=== PATIENT | female | born 1970 | race Caucasian/White ===

== ENCOUNTER 2017-12-01 12:15 | Emergency (ER) | payer OTHER, SELFPAY ==
[2017-12-01 13:07] LABS: #Basophils 0.1 thou/uL (0.0-0.2); #Eosinphils 0.2 thou/uL (0.0-0.7); #Monocytes 0.6 thou/uL (0.11-0.59); #Neutrophils 7.6 thou/uL (1.40-6.50); %Basophils 0.6 % (0.0-1.0); %Eosinophils 1.3 % (0.0-10.0); %Lymphocytes 26.2 % (21.0-51.0); %Monocytes 4.9 % (0.0-10.0); Hemoglobin 13.5 g/dL (12.0-16.0); Mean Corpuscular HGB CONC 35.5 g/dL (32.0-36.0); Mean Corpuscular Hemoglobin 33.9 pg (27.0-31.0); Mean Corpuscular Volume 95.5 fL (78.0-98.0); Mean Platelet Volume 7.5 fL (7.4-10.4); Platelet Count 310 thou/uL (130-400); RBC Distribution Width 12.2 % (11.5-14.5); Red Blood Cell (RBC) Count 3.99 mill/uL (4.20-5.40); White Blood Cell (WBC) Count 11.3 thou/uL (4.8-10.8)
[2017-12-01 13:27] LABS: ALT (SGPT) 38 U/L (8-55); AST (SGOT) 20 U/L (5-34); Alkaline Phosphatase 104 U/L (40-150); Anion Gap 11 mmol/L (10-20); BUN (Urea Nitrogen) 15 mg/dL (7.0-18.7); Bilirubin, Total 0.7 mg/dL (0.2-1.2); CK (CPK) 36 U/L (29-168); Calc. Creatinine Clearance 0 mL/min (70-130); Calcium 9.8 mg/dL (7.8-10.44); Carbon Dioxide 25 mmol/L (22-29); Chloride 106 mmol/L (98-107); Estimated GFR-MDRD 81; Globulin 3.3 g/dL (2.4-3.5); Glucose 103 mg/dL (70-105); Potassium 4.1 mmol/L (3.5-5.1); Protein, Total 7.3 g/dL (6.0-8.3); Sodium 138 mmol/L (136-145)
[2017-12-01 13:29] LABS: CKMB 0.4 ng/mL (0-6.6); Troponin I Less than 0.010 ng/mL (< 0.028)
--- NOTE | 2017-12-01 13:42 | RAD ---
CHEST 1 VIEW: HISTORY: Chest pain. COMPARISON: Chest radiograph 07/15/14. FINDINGS: Heart size is mildly enlarged. No pneumothorax. No effusion. No acute focal osseous abnormality. IMPRESSION: No acute intrathoracic abnormality. POS: [facility]
[2017-12-01] MEDS ORDERED: Cyclobenzaprine 10 MG TAB ONE (14:13)
[2017-12-01] MEDS ORDERED: Ketorolac Tromethamine 60 MG/2 ML VIAL ONE (14:13)
[2017-12-01] MEDS ORDERED: Cyclobenzaprine 10 MG TAB PO SCH (14:30)
[2017-12-01] MEDS ORDERED: Ketorolac Tromethamine 30 MG/ML VIAL IM SCH (14:30)
== END 2017-12-01 14:36 | disposition home or self-care (01) ==
LOC: ERS 12:15
DX: R07.89 Other chest pain (principal); I10 Essential (primary) hypertension; G43.909 Migraine, unspecified, not intractable, without status migrainosus; E78.5 Hyperlipidemia, unspecified; Z79.899 Other long term (current) drug therapy
CPT/HCPCS: 36416; 71045; 80053; 82550; 82553; 84484; 85025; 93005; 96372; J1885

== ENCOUNTER 2018-02-10 23:12 | Emergency (ER) | payer BC, SELFPAY ==
[2018-02-11] MEDS ORDERED: HYDROcodone/Acetaminophen 10/325 mg Tablet ONE (00:12)
--- NOTE | 2018-02-11 07:21 | RAD ---
2 VIEW RIGHT FOREARM: Date: 02/10/18 INDICATION: Injury with pain. FINDINGS: There is no fracture or dislocation. No radiopaque foreign body. IMPRESSION: No acute osseous abnormality of the right forearm. POS: [facility]
--- NOTE | 2018-02-11 08:09 | RAD ---
THREE VIEWS RIGHT WRIST: History: Tripped and fell. Right wrist pain. FINDINGS: AP, lateral, and oblique views of the right wrist obtained and demonstrate no evidence of right wrist fractures, subluxations, or bony lesions. If there is concern for an occult scaphoid fracture, repeat radiograph in 7-10 days may be of use. IMPRESSION: Normal three views right wrist. POS: [facility]
== END 2018-02-11 00:50 | disposition home or self-care (01) ==
LOC: ERS 23:12
DX: M25.531 Pain in right wrist (principal); I10 Essential (primary) hypertension; G43.909 Migraine, unspecified, not intractable, without status migrainosus; E78.5 Hyperlipidemia, unspecified; W19.XXXA Unspecified fall, initial encounter
CPT/HCPCS: 29125

== ENCOUNTER 2019-04-30 12:13 | Outpatient (CLI) | payer BC ==
--- NOTE | 2019-04-30 12:46 | RAD ---
LEFT ANKLE THREE VIEWS: HISTORY: Pain. FINDINGS: Mild soft tissue swelling. No evidence of fracture. Spurring from the plantar and posterior calcaneus noted. IMPRESSION: No acute fracture. POS: [facility]
--- NOTE | 2019-04-30 12:48 | RAD ---
LEFT FOOT THREE VIEWS: HISTORY: Foot pain. History of stress fracture. FINDINGS: Tarsals appear intact. Mild spurring from the posterior and plantar calcaneus. Metatarsals appear intact. No abnormal periosteal reaction identified. Phalanges and MTP joints unremarkable. IMPRESSION: No acute abnormality identified. POS: [facility]
== END 2019-04-30 12:14 | disposition home or self-care (01) ==
LOC: BICRAD 12:13
PROVIDERS: ATTEND Nurse Practitioner Family
DX: M79.672 Pain in left foot (principal); M25.572 Pain in left ankle and joints of left foot

== ENCOUNTER 2020-03-16 01:05 | Emergency (ER) | payer BC ==
[2020-03-16] MEDS ORDERED: Ketorolac Tromethamine 30 MG/ML VIAL ONE (02:20)
--- NOTE | 2020-03-16 07:16 | RAD ---
RADIOGRAPH LEFT FOOT 3VIEWS: DATE: 03/16/2020 2:20 AM HISTORY: 49-year-old female with foot pain diagnosed with stress fracture. FINDINGS: There is no evidence of fracture or dislocation. There is no evidence of periostitis, permeative lesi on, osteolytic lesion, or osteoblastic lesion. The joint spaces are maintained without erosions or significant osteophytes. Moderate size enthesophyte at Achilles tendon insertion site at posterior ca lcaneus. No stress fracture identified. IMPRESSION: Negative
== END 2020-03-16 03:14 | disposition home or self-care (01) ==
LOC: ERS 01:05
DX: M84.375A Stress fracture, left foot, initial encounter for fracture (principal); I10 Essential (primary) hypertension; E78.5 Hyperlipidemia, unspecified; G43.909 Migraine, unspecified, not intractable, without status migrainosus; Z79.899 Other long term (current) drug therapy
CPT/HCPCS: 96372; J1885